=== PATIENT | female | born 1930 | race Caucasian/White ===

== ENCOUNTER → 2018-11-14 | Outpatient (CLI) | payer MEDICARE, BC ==
--- NOTE | 2018-11-14 15:06 | MR ---
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 FINDINGS: Diffusion weighted images demonstrate no evidence of a recent infarct or other diffusion abnormality. There is no extra-axial fluid collection. 6 mm area of T2/FLAIR hyperintensity is seen within the central kendra. There is no restricted diffusio n. Numerous other foci of confluent periventricular and subcortical T2/FLAIR hyperintensity are seen. The ventricular system and cisternal spaces are symmetric in size compatible with age-related volum e loss. 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 The craniocervica l junction appears within normal limits. The The visualized sinuses are clear and the globes are inta ct. IMPRESSION: 1. Focal pontine gliosis measuring 6 mm is in keeping with this patient's reported history of brainst em infarct. 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 2. 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 Correlate with clinical sym ptoms.
== END | disposition home or self-care (01) ==
LOC: RADMRIMAIN 13:14
PROVIDERS: ATTEND Psychiatry & Neurology Neurology
DX: G93.89 Other specified disorders of brain (principal); R90.89 Other abnormal findings on diagnostic imaging of central nervous system; G31.9 Degenerative disease of nervous system, unspecified
CPT/HCPCS: 70551